=== PATIENT | male | born 1970 | race African-American/Black ===

== ENCOUNTER 2023-12-24 05:39 | Emergency (ER) | payer SELFPAY ==
[~2023-12-24] VITALS: Ht 167.6 cm; Wt 81.8 kg
[2023-12-24 05:42] VITALS: TEMP 97.9
[2023-12-24] MEDS ORDERED: PENICILLIN V POTASSIUM 500 MG TABLET PO ONE (06:15)
[2023-12-24] MEDS ORDERED: IBUPROFEN 600 MG TABLET PO ONE (06:15)
[2023-12-24] MEDS ORDERED: PENI500T2 PO (06:20)
[2023-12-24] MEDS ORDERED: IBUP-1492 PO (06:20)
[2023-12-24] MEDS ORDERED: PERCT PO (06:20)
[2023-12-24 06:30] VITALS: BP 147/92; PULSE 59; RESP 15
== END 2023-12-24 06:38 | disposition home or self-care (01) ==
LOC: EMS 05:39
DX: S02.5XXA Fracture of tooth (traumatic), initial encounter for closed fracture (principal); R51.9 Headache, unspecified; X58.XXXA Exposure to other specified factors, initial encounter; Y93.89 Activity, other specified; Y92.89 Other specified places as the place of occurrence of the external cause; Y99.8 Other external cause status
CPT/HCPCS: 99283